=== PATIENT | male | born 1975 | race Caucasian/White ===

== ENCOUNTER 2018-03-25 15:43 | Inpatient (IN) ==
[2018-03-25] MEDS ORDERED: SODIUM CHLORIDE 0.9% 500 ML IV STA (16:04)
[2018-03-25] MEDS ORDERED: CLINDAMYCIN INJ 600 MG in PREMIX 1 EACH IV STA (16:04)
[2018-03-25 17:04] LABS: Basophils # 0.1 10*3/uL (0.0-0.2); Basophils % 0.3 % (0.0-0.8); Hematocrit 37.6 VOL% (42.0-52.0); Hemoglobin 13.1 GM/DL (14.0-18.0); Immature Granulocytes % 0.9 %; Immature Granulocytes Absolute 0.18 #; Lymphocytes # 1.1 10*3/uL (1.4-4.0); Lymphocytes % 5.7 % (21.2-54.2); Mean Corpuscular HGB Conc 34.8 GM/DL (32-36); Mean Corpuscular Hemoglobin 31 PG (27-34); Mean Corpuscular Volume 88.3 FL (87-102); Mean Platelet Volume 10.9 FL (9.6-12.0); Monocytes % 5.2 % (1.7-12.7); Neutrophils # 16.8 10*3/uL (1.4-7.4); Neutrophils % 87.9 % (38.7-73.9); Platelet Count 143 T/CUMM (130-400); Red Blood Count 4.26 MC/CUMM (3.8-5.5); Red Cell Distribution Width 12.8 % (9.3-17.3); White Blood Count 19.2 T/CUMM (4-12)
[2018-03-25 17:22] LABS: Albumin 2.7 G/DL (3.4-5.0); Bilirubin,Total 1.3 MG/DL (0.2-1.0); Calcium 8.3 MG/DL (8.5-10.1); Osmolality,Calculated 267.5 MOS/KG (273-304); Potassium 2.7 MMOL/L (3.5-5.1); Total Protein 6.7 G/DL (6.4-8.3)
[2018-03-25] MEDS ORDERED: BISACODYL 5 MG TABLET PO PRN (17:38)
[2018-03-25] MEDS ORDERED: DEXTROSE 50% 25 GM/50 ML VIAL IV PRN (17:38)
[2018-03-25] MEDS ORDERED: GLUCAGON 1 MG VIAL IM PRN (17:38)
[2018-03-25] MEDS ORDERED: LACTULOSE 20 GM/30 ML UDCUP PO PRN (17:38)
[2018-03-25] MEDS ORDERED: POTASSIUM CHLORIDE 20 MEQ TABLET PO STA (17:53)
[2018-03-25] MEDS ORDERED: POTASSIUM CHLORIDE RIDER 10 MEQ in PREMIX 1 EACH IV PRN (17:54)
[2018-03-25] MEDS ORDERED: MAGNESIUM SULF RIDER 4 GM in PREMIX 1 EACH IV PRN (17:54)
[2018-03-25] MEDS ORDERED: MAGNESIUM SULF RIDER 2 GM in PREMIX 1 EACH IV PRN (17:54)
[2018-03-25] MEDS ORDERED: ENOXAPARIN 30 MG/0.3 ML SYRINGE SUBCUT SCH (18:00)
[2018-03-25] MEDS ORDERED: SODIUM CHLOR 0.9% KCL 20 MEQ 20 MEQ/1,000 ML BAG IV SCH (18:00)
[2018-03-25 18:12] LABS: Thyroid Stimulating Hormone 1.01 uIU/ml (0.358-3.74)
[2018-03-25] MEDS ORDERED: MAGNESIUM SULF RIDER 4 GM in PREMIX 1 EACH IV ONE (19:00)
[2018-03-25] MEDS ORDERED: ERGOCALCIFEROL 50,000 UNIT CAPSULE PO SCH (19:00)
[2018-03-25 19:11] LABS: Apearance,Urine CLEAR (Clear); Bilirubin,Urine Negative (Negative); Blood, Urine Small mg/dL (Negative); Glucose,Urine (UA) Negative (Negative); Ketones,Urine Negative (Negative); Nitrite,Urine Negative (Negative); Protein,Urine 30 MG/DL; Urine Color Yellow (Yellow); Urine Urobilinogen < 2.0 EU/DL (0.2-1.0); WBC,Urine <1 /HPF (0-6)
[2018-03-25] MEDS: ceFAZolin 1,000 MG in SYRINGE 1 EACH IV SCH (19:53)
[2018-03-25] MEDS ORDERED: sitaGLIPtin 25 MG TABLET PO SCH (21:00)
[2018-03-25] MEDS: VANCOMYCIN INJ 2,250 MG in SODIUM CHLORIDE 0.9% 500 ML IV SCH (21:55)
[2018-03-25] MEDS: FUROSEMIDE 80 MG TABLET PO SCH (22:30)
[2018-03-25] MEDS: POTASSIUM CHLORIDE 20 MEQ TABLET PO SCH (22:30)
[2018-03-25] MEDS: CARVEDILOL 6.25 MG TABLET PO SCH (22:31)
[2018-03-25] MEDS: INSULIN LISPRO 100 UNIT/ML SUBCUT SCH (22:39)
[2018-03-26] MEDS: POTASSIUM CHLORIDE 20 MEQ TABLET PO SCH ×5 (00:58→21:31)
[2018-03-26] MEDS: ceFAZolin 1,000 MG in SYRINGE 1 EACH IV SCH ×3 (02:12→17:40)
[2018-03-26 05:43] LABS: Basophils # 0.1 10*3/uL (0.0-0.2); Basophils % 0.4 % (0.0-0.8); Eosinophils % 0.1 % (0.00-10.9); Hematocrit 36.1 VOL% (42.0-52.0); Hemoglobin 12.5 GM/DL (14.0-18.0); Immature Granulocytes % 0.9 %; Immature Granulocytes Absolute 0.12 #; Lymphocytes # 0.8 10*3/uL (1.4-4.0); Lymphocytes % 5.7 % (21.2-54.2); Mean Corpuscular HGB Conc 34.6 GM/DL (32-36); Mean Corpuscular Hemoglobin 30 PG (27-34); Mean Corpuscular Volume 87.6 FL (87-102); Mean Platelet Volume 11.6 FL (9.6-12.0); Monocytes # 1.1 10*3/uL (0.11-0.8); Monocytes % 7.7 % (1.7-12.7); Neutrophils # 11.9 10*3/uL (1.4-7.4); Neutrophils % 85.2 % (38.7-73.9); Platelet Count 137 T/CUMM (130-400); Red Blood Count 4.12 MC/CUMM (3.8-5.5); Red Cell Distribution Width 12.9 % (9.3-17.3); White Blood Count 13.9 T/CUMM (4-12)
[2018-03-26 06:24] LABS: Albumin 2.5 G/DL (3.4-5.0); Bilirubin,Total 1.2 MG/DL (0.2-1.0); Calcium 8.2 MG/DL (8.5-10.1); Osmolality,Calculated 273.4 MOS/KG (273-304); Potassium 2.6 MMOL/L (3.5-5.1); Total Protein 6.5 G/DL (6.4-8.3)
[2018-03-26] MEDS: ONDANSETRON 4 MG/2 ML VIAL IV PRN (09:55)
[2018-03-26] MEDS: AMIODARONE 200 MG TABLET PO SCH (09:58)
[2018-03-26] MEDS: DIGOXIN 0.125 MG TABLET PO SCH (09:59)
[2018-03-26] MEDS: FUROSEMIDE 80 MG TABLET PO SCH (09:59)
[2018-03-26] MEDS: metFORMIN 500 MG TABLET PO SCH ×3 (10:00→19:09)
[2018-03-26] MEDS ORDERED: POTASSIUM CHLORIDE 20 MEQ TABLET PO SCH (10:00)
[2018-03-26] MEDS: PANTOPRAZOLE 40 MG TABLET PO SCH (10:00)
[2018-03-26] MEDS: CARVEDILOL 6.25 MG TABLET PO SCH ×2 (10:01→21:31)
[2018-03-26] MEDS: VANCOMYCIN INJ 2,250 MG in SODIUM CHLORIDE 0.9% 500 ML IV SCH (10:05)
[2018-03-26] MEDS: INSULIN LISPRO 100 UNIT/ML SUBCUT SCH ×4 (10:06→21:31)
[2018-03-26] MEDS ORDERED: SKIN HEALING OINT (AQUAPHOR) 50 GM TUBE TOP PRN (10:26)
[2018-03-26] MEDS ORDERED: FUROSEMIDE 40 MG/4 ML VIAL ONE (10:33)
[2018-03-26] MEDS ORDERED: FUROSEMIDE 100 MG/10 ML VIAL IV ONE (10:36)
[2018-03-26] MEDS ORDERED: FUROSEMIDE 40 MG/4 ML VIAL IV ONE (11:19)
[2018-03-26] MEDS ORDERED: metOLazone 5 MG TABLET PO ONE (12:00)
[2018-03-26] MEDS ORDERED: POTASSIUM CHLORIDE 20 MEQ TABLET PO ONE (12:23)
[2018-03-26] MEDS ORDERED: ALBUTEROL/IPRATROPIUM 3 ML NEB RESP TX SCH (13:00)
[2018-03-26] MEDS ORDERED: FUROSEMIDE 100 MG/10 ML VIAL IV SCH (16:00)
[2018-03-26 17:32] LABS: ABG Base Excess 4.7 MMOL/L (-2.5-2.5); ABG HCO3 28.6 MMOL/L (20-26); ABG Oxygen Saturation 95.5 % (95-100); ABG PCO2 34.4 MM HG (35-48); ABG PO2 73.7 MM HG (80-95); ABG TCO2 23.8 MMOL/L (23-27)
[2018-03-26] MEDS: ENOXAPARIN 40 MG/0.4 ML SYRINGE SUBCUT SCH (17:43)
[2018-03-26] MEDS: FUROSEMIDE INJ 200 MG in SODIUM CHLORIDE 0.9% 80 ML IV SCH ×2 (19:08→21:27)
[2018-03-26 20:04] LABS: Calcium 8.2 MG/DL (8.5-10.1); Osmolality,Calculated 271.5 MOS/KG (273-304); Potassium 3.2 MMOL/L (3.5-5.1)
[2018-03-26] MEDS: sitaGLIPtin 25 MG TABLET PO SCH (21:31)
[2018-03-26] MEDS ORDERED: traZODone 50 MG TABLET PO PRN (21:37)
[2018-03-26] MEDS ORDERED: MAGNESIUM SULF RIDER 2 GM in PREMIX 1 EACH IV ONE (21:52)
[2018-03-26] MEDS: POTASSIUM CHLORIDE 20 MEQ TABLET PO PRN (23:40)
[2018-03-27] MEDS: POTASSIUM CHLORIDE 20 MEQ TABLET PO PRN ×6 (02:00→15:26)
[2018-03-27] MEDS: ceFAZolin 1,000 MG in SYRINGE 1 EACH IV SCH ×3 (02:00→17:28)
[2018-03-27 05:12] LABS: Basophils % 0.2 % (0.0-0.8); Eosinophils % 0.1 % (0.00-10.9); Hemoglobin 12.6 GM/DL (14.0-18.0); Immature Granulocytes % 1.2 %; Immature Granulocytes Absolute 0.14 #; Lymphocytes % 8.4 % (21.2-54.2); Mean Corpuscular Hemoglobin 30 PG (27-34); Mean Corpuscular Volume 86.7 FL (87-102); Mean Platelet Volume 11.5 FL (9.6-12.0); Monocytes # 0.6 10*3/uL (0.11-0.8); Monocytes % 4.9 % (1.7-12.7); Neutrophils % 85.2 % (38.7-73.9); Platelet Count 147 T/CUMM (130-400); Red Blood Count 4.15 MC/CUMM (3.8-5.5); Red Cell Distribution Width 12.9 % (9.3-17.3); White Blood Count 11.7 T/CUMM (4-12)
[2018-03-27 05:25] LABS: Calcium 7.7 MG/DL (8.5-10.1); Osmolality,Calculated 276.5 MOS/KG (273-304); Potassium 2.9 MMOL/L (3.5-5.1)
[2018-03-27] MEDS: POTASSIUM CHLORIDE 20 MEQ TABLET PO SCH ×3 (09:15→21:41)
[2018-03-27] MEDS: PANTOPRAZOLE 40 MG TABLET PO SCH (09:15)
[2018-03-27] MEDS: DIGOXIN 0.125 MG TABLET PO SCH (09:15)
[2018-03-27] MEDS: AMIODARONE 200 MG TABLET PO SCH (09:16)
[2018-03-27] MEDS: metOLazone 5 MG TABLET PO SCH (09:16)
[2018-03-27] MEDS: CARVEDILOL 6.25 MG TABLET PO SCH ×2 (09:16→21:42)
[2018-03-27] MEDS: metFORMIN 500 MG TABLET PO SCH ×2 (09:16→17:28)
[2018-03-27] MEDS: MAGNESIUM OXIDE 400 MG TABLET PO SCH ×2 (09:16→21:42)
[2018-03-27] MEDS: INSULIN LISPRO 100 UNIT/ML SUBCUT SCH ×4 (09:17→23:50)
[2018-03-27] MEDS: ONDANSETRON 4 MG/2 ML VIAL IV PRN (13:26)
[2018-03-27] MEDS: FUROSEMIDE INJ 200 MG in SODIUM CHLORIDE 0.9% 80 ML IV SCH (17:26)
[2018-03-27] MEDS: ENOXAPARIN 40 MG/0.4 ML SYRINGE SUBCUT SCH (17:27)
[2018-03-27] MEDS: CEFEPIME 2,000 MG in SYRINGE 1 EACH IV SCH (21:32)
[2018-03-27] MEDS: sitaGLIPtin 25 MG TABLET PO SCH (21:42)
[2018-03-27] MEDS: CLINDAMYCIN INJ 600 MG in PREMIX 1 EACH IV SCH (21:42)
[2018-03-27] MEDS: LOSARTAN 25 MG TABLET PO SCH (21:54)
[2018-03-28] MEDS: ceFAZolin 1,000 MG in SYRINGE 1 EACH IV SCH ×3 (02:32→17:08)
[2018-03-28] MEDS: CLINDAMYCIN INJ 600 MG in PREMIX 1 EACH IV SCH ×3 (02:33→17:30)
[2018-03-28 05:34] LABS: Basophils % 0.4 % (0.0-0.8); Eosinophils # 0.1 10*3/uL (0.0-0.87); Eosinophils % 0.5 % (0.00-10.9); Hematocrit 37.6 VOL% (42.0-52.0); Hemoglobin 12.8 GM/DL (14.0-18.0); Immature Granulocytes % 1.6 %; Immature Granulocytes Absolute 0.16 #; Lymphocytes # 1.5 10*3/uL (1.4-4.0); Lymphocytes % 14.9 % (21.2-54.2); Mean Corpuscular Hemoglobin 30 PG (27-34); Mean Corpuscular Volume 88.7 FL (87-102); Mean Platelet Volume 11.5 FL (9.6-12.0); Monocytes # 0.7 10*3/uL (0.11-0.8); Monocytes % 7.1 % (1.7-12.7); Neutrophils # 7.8 10*3/uL (1.4-7.4); Neutrophils % 75.5 % (38.7-73.9); Platelet Count 182 T/CUMM (130-400); Red Blood Count 4.24 MC/CUMM (3.8-5.5); Red Cell Distribution Width 12.9 % (9.3-17.3); White Blood Count 10.3 T/CUMM (4-12)
[2018-03-28] MEDS: CEFEPIME 2,000 MG in SYRINGE 1 EACH IV SCH ×3 (05:35→19:01)
[2018-03-28 05:57] LABS: Calcium 8.6 MG/DL (8.5-10.1); Osmolality,Calculated 280.2 MOS/KG (273-304); Potassium 2.6 MMOL/L (3.5-5.1)
[2018-03-28] MEDS: POTASSIUM CHLORIDE 20 MEQ TABLET PO SCH ×5 (06:46→20:54)
[2018-03-28] MEDS: AMIODARONE 200 MG TABLET PO SCH (09:40)
[2018-03-28] MEDS: MAGNESIUM OXIDE 400 MG TABLET PO SCH ×2 (09:41→20:55)
[2018-03-28] MEDS: metOLazone 5 MG TABLET PO SCH (09:41)
[2018-03-28] MEDS: LOSARTAN 25 MG TABLET PO SCH ×2 (09:41→20:55)
[2018-03-28] MEDS: CARVEDILOL 6.25 MG TABLET PO SCH ×2 (09:42→20:56)
[2018-03-28] MEDS: PANTOPRAZOLE 40 MG TABLET PO SCH (09:42)
[2018-03-28] MEDS: DIGOXIN 0.125 MG TABLET PO SCH (09:42)
[2018-03-28] MEDS: POTASSIUM CHLORIDE 20 MEQ TABLET PO PRN ×4 (09:42→16:09)
[2018-03-28] MEDS: metFORMIN 500 MG TABLET PO SCH ×2 (09:42→17:08)
[2018-03-28] MEDS: INSULIN LISPRO 100 UNIT/ML SUBCUT SCH ×4 (09:46→20:56)
[2018-03-28] MEDS: FUROSEMIDE INJ 200 MG in SODIUM CHLORIDE 0.9% 80 ML IV SCH (13:41)
[2018-03-28] MEDS ORDERED: FUROSEMIDE 100 MG/10 ML VIAL IV SCH (16:00)
[2018-03-28] MEDS: ENOXAPARIN 40 MG/0.4 ML SYRINGE SUBCUT SCH (17:08)
[2018-03-28] MEDS: sitaGLIPtin 25 MG TABLET PO SCH (20:54)
[2018-03-29] MEDS: ceFAZolin 1,000 MG in SYRINGE 1 EACH IV SCH ×2 (02:24→09:45)
[2018-03-29] MEDS: CLINDAMYCIN INJ 600 MG in PREMIX 1 EACH IV SCH ×2 (02:24→09:49)
[2018-03-29] MEDS: CEFEPIME 2,000 MG in SYRINGE 1 EACH IV SCH (03:31)
[2018-03-29 05:55] LABS: Basophils # 0.1 10*3/uL (0.0-0.2); Basophils % 0.4 % (0.0-0.8); Eosinophils # 0.3 10*3/uL (0.0-0.87); Eosinophils % 2.5 % (0.00-10.9); Hematocrit 36.9 VOL% (42.0-52.0); Hemoglobin 12.4 GM/DL (14.0-18.0); Immature Granulocytes % 3.8 %; Immature Granulocytes Absolute 0.42 #; Lymphocytes # 1.4 10*3/uL (1.4-4.0); Lymphocytes % 12.9 % (21.2-54.2); Mean Corpuscular HGB Conc 33.6 GM/DL (32-36); Mean Corpuscular Hemoglobin 30 PG (27-34); Mean Corpuscular Volume 89.1 FL (87-102); Mean Platelet Volume 11.1 FL (9.6-12.0); Monocytes # 0.7 10*3/uL (0.11-0.8); Monocytes % 6.5 % (1.7-12.7); Neutrophils # 8.2 10*3/uL (1.4-7.4); Neutrophils % 73.9 % (38.7-73.9); Platelet Count 193 T/CUMM (130-400); Red Blood Count 4.14 MC/CUMM (3.8-5.5); Red Cell Distribution Width 12.9 % (9.3-17.3); White Blood Count 11.1 T/CUMM (4-12)
[2018-03-29 06:14] LABS: Albumin 2.2 G/DL (3.4-5.0); Bilirubin,Total 1.2 MG/DL (0.2-1.0); Calcium 7.7 MG/DL (8.5-10.1); Osmolality,Calculated 279.7 MOS/KG (273-304); Potassium 3.5 MMOL/L (3.5-5.1); Total Protein 6.4 G/DL (6.4-8.3)
[2018-03-29] MEDS ORDERED: FUROSEMIDE 80 MG TABLET PO SCH ×2 (09:00)
[2018-03-29] MEDS: MAGNESIUM OXIDE 400 MG TABLET PO SCH (09:40)
[2018-03-29] MEDS: DIGOXIN 0.125 MG TABLET PO SCH (09:40)
[2018-03-29] MEDS: metFORMIN 500 MG TABLET PO SCH (09:40)
[2018-03-29] MEDS: POTASSIUM CHLORIDE 20 MEQ TABLET PO SCH (09:41)
[2018-03-29] MEDS: CARVEDILOL 6.25 MG TABLET PO SCH (09:43)
[2018-03-29] MEDS: AMIODARONE 200 MG TABLET PO SCH (09:44)
[2018-03-29] MEDS: PANTOPRAZOLE 40 MG TABLET PO SCH (09:45)
[2018-03-29] MEDS: INSULIN LISPRO 100 UNIT/ML SUBCUT SCH (09:45)
[2018-03-29] MEDS ORDERED: ASCORBIC ACID 500 MG TABLET PO SCH (11:30)
[2018-03-29] MEDS ORDERED: SPIRONOLACTONE 25 MG TABLET PO SCH (11:30)
[2018-03-29 11:55] VITALS: BP 101/57
== END 2018-03-29 13:07 | disposition home or self-care (01) | DRG 602 ==
LOC: N.ED 15:43 → N.EDINP 17:36 → N.2E 18:56 → N.TELEN 03-26 18:17
PROVIDERS: ADMIT Hospitalist; ATTEND Hospitalist